=== PATIENT | female | born 1995 | race African-American/Black ===

== ENCOUNTER 2019-05-13 12:10 | Emergency (ER) | payer OTHER ==
[~2019-05-13 12:10] MED LIST: Iopamidol-370 76% 500 ML 1 ML ONE
[2019-05-13 13:13] LABS: #Basophils 0.1 thou/uL (0.0-0.2); #Lymphocytes 2.1 thou/uL (1.20-3.40); #Monocytes 0.7 thou/uL (0.11-0.59); #Neutrophils 4.1 thou/uL (1.40-6.50); %Basophils 0.7 % (0.0-1.0); %Eosinophils 0.4 % (0.0-10.0); %Lymphocytes 29.6 % (21.0-51.0); %Monocytes 10.7 % (0.0-10.0); %Neutrophils 58.5 % (42.0-75.0); Hemoglobin 13.1 g/dL (12.0-16.0); Mean Corpuscular HGB CONC 32.4 g/dL (32.0-36.0); Mean Corpuscular Hemoglobin 29.1 pg (27.0-31.0); Mean Corpuscular Volume 89.8 fL (78.0-98.0); Mean Platelet Volume 7.8 fL (7.4-10.4); Platelet Count 191 thou/uL (130-400); RBC Distribution Width 12.5 % (11.5-14.5); Red Blood Cell (RBC) Count 4.49 mill/uL (4.20-5.40); White Blood Cell (WBC) Count 6.9 thou/uL (4.8-10.8)
--- NOTE | 2019-05-13 13:23 | RAD ---
RADIOGRAPH CHEST 1 VIEW: DATE: 05/13/2019 HISTORY: 24-year-old female with chest pain FINDINGS: The visualized lung mejia are clear. The cardiomediastinal silhouette and hilar shadows are normal. The lateral costophrenic angles are sharp. The osseous structures appear normal. There is no pneumothorax. IMPRESSION: Negative.
[2019-05-13 13:28] LABS: ALT (SGPT) Less than 7 U/L (8-55); AST (SGOT) 10 U/L (5-34); Albumin 4.1 g/dL (3.5-5.0); Alkaline Phosphatase 62 U/L (40-110); Anion Gap 13 mmol/L (10-20); BUN (Urea Nitrogen) 10 mg/dL (7.0-18.7); Bilirubin, Total 0.2 mg/dL (0.2-1.2); Calc. Creatinine Clearance 0 mL/min (70-130); Calcium 8.7 mg/dL (7.8-10.44); Carbon Dioxide 20 mmol/L (22-29); Chloride 110 mmol/L (98-107); Estimated GFR-MDRD Greater than 90; Globulin 2.7 g/dL (2.4-3.5); Glucose 67 mg/dL (70-105); Lipase 17 U/L (8-78); Potassium 4.2 mmol/L (3.5-5.1); Protein, Total 6.8 g/dL (6.0-8.3); Sodium 139 mmol/L (136-145)
[2019-05-13 14:55] LABS: Pregnancy Test - Urine (BHCG) Negative (Negative); Pregu Control Background? CLEAR/WHITE (CLR/WHITE); Pregu Control Bar Appear? YES (CONTROL BAR); Specific Gravity 1.012 (1.002-1.036)
[2019-05-13] MEDS ORDERED: Haloperidol Lactate 5 MG/ML VIAL ONE (18:14)
--- NOTE | 2019-05-13 18:26 | CT ---
CTA Angio Chest W WO Con 05/13/2019 1:55 PM Indication: Left upper chest wall pain Technique: Multiple CTA images were obtained of the thorax with IV contrast. 3-D rendering: MIP olivia nstructed images were created and reviewed. Comparison: No relevant prior studies available. Findings: Pulmonary arteries: No central or segmental pulmonary embolus is evident. Heart and Aorta: Normal appearing. Mediastinum:Normal appearing. No enlarged lymph nodes. Lungs:The lungs are clear. Pleural space: Clear. Upper Abdomen: No acute abnormality. Osseous Structures: No acute osseous abnormality. Soft tissues:No abnormality. Other findings:None. Impression: No central or segmental pulmonary embolus.
== END 2019-05-13 18:57 ==
LOC: ERS 12:10
DX: R07.9 Chest pain, unspecified (principal); F43.10 Post-traumatic stress disorder, unspecified; F31.9 Bipolar disorder, unspecified; Z79.899 Other long term (current) drug therapy
CPT/HCPCS: 36415; 71045; 71275; 80053; 81025; 83690; 84484; 85025; 85379; 93005; 96374; J1630; Q9967